=== PATIENT | male | born 1980 | race Native Hawaiian/Other Pacific Islander ===

== ENCOUNTER 2017-06-15 09:50 | Outpatient (CLI) | payer OTHER | END 2017-06-15 19:06 | disposition home or self-care (01) | LOC: RAD 09:50 | DX: M79.631 Pain in right forearm (principal) ==

== ENCOUNTER 2018-09-29 05:58 | Emergency (ER) | payer OTHER ==
[~2018-09-29] VITALS: Ht 180.3 cm; Wt 102.1 kg
[2018-09-29 06:59] LABS: PLATELET COUNT 270 K/uL (142-355)
[2018-09-29 07:46] LABS: POTASSIUM 4.3 mmol/L (3.6-5.2)
[2018-09-29 08:50] VITALS: BP 132/99; TEMP 98
== END 2018-09-29 08:50 | disposition home or self-care (01) ==
LOC: ED 05:58
PROVIDERS: Internal Medicine
DX: N20.1 Calculus of ureter (principal)
CPT/HCPCS: 80053; 81000; 85027; 96374; 96375; 99284; J1170; J1885; J2405

== ENCOUNTER 2019-08-19 07:10 | Emergency (ER) | payer OTHER ==
[~2019-08-19] VITALS: Ht 180.3 cm; Wt 102.1 kg
[2019-08-19 07:24] VITALS: TEMP 99
[2019-08-19 08:43] VITALS: BP 130/84
== END 2019-08-19 08:44 | disposition home or self-care (01) ==
LOC: ED 07:10
PROC: 2W3CX1Z Immobilization of Right Lower Arm using Splint (ICD-10-PCS; principal; 2019-08-19)
DX: S63.501A Unspecified sprain of right wrist, initial encounter (principal); X50.9XXA Other and unspecified overexertion or strenuous movements or postures, initial encounter
CPT/HCPCS: 99282

== ENCOUNTER 2021-12-12 18:43 | Emergency (ER) | payer OTHER ==
[~2021-12-12] VITALS: Ht 180.3 cm; Wt 107.0 kg
[2021-12-12] MEDS ORDERED: CEPH500C20 PO (20:01)
[2021-12-12 20:03] VITALS: BP 140/100; TEMP 97.6
== END 2021-12-12 20:03 | disposition home or self-care (01) ==
LOC: ED 18:43
PROC: 0HQGXZZ Repair Left Hand Skin, External Approach (ICD-10-PCS; principal; 2021-12-12)
DX: S61.211A Laceration without foreign body of left index finger without damage to nail, initial encounter (principal); W26.8XXA Contact with other sharp object(s), not elsewhere classified, initial encounter; Y92.89 Other specified places as the place of occurrence of the external cause
CPT/HCPCS: 99283; J7040